=== PATIENT | male | born 1975 | race Caucasian/White ===

== ENCOUNTER 2017-01-28 10:20 | Emergency (ER) | payer OTHER ==
[2017-01-28 10:36] VITALS: BP 122/84
[2017-01-28] MEDS ORDERED: DIPH/PERTUSS(ACELL)/TETANUS VAC/PF 0.5 ML SYR (>=10YO) IM ONE (11:01)
[2017-01-28] MEDS ORDERED: LIDOCAINE 1% INJ-PF (10 MG/ML) 30 ML SDV INJ ONE (11:04)
--- NOTE | 2017-01-28 11:05 | ER Document Report ---
HPI - HPI Patient complains to provider of: finger lac Onset: Just prior to arrival Onset/Duration: Sudden Quality of pain: No pain, Achy Pain Level: 0 Context: Patient states that he was using a sledgehammer to break glass and his hand slipped cutting his right second finger on broken glass. Patient with laceration to dorsal aspect of right finger. Associated Symptoms: Other - finger lac Exacerbated by: Denies Relieved by: Denies Similar symptoms previously: No Recently seen / treated by doctor: No - ROS ROS below otherwise negative: Yes Systems Reviewed and Negative: Yes All other systems reviewed and negative - DERM Skin Color: Normal Skin Problems: Laceration Past Medical History - General Information source: Patient - Social History Smoking Status: Current Every Day Smoker Frequency of alcohol use: Occasional Drug Abuse: None Occupation: salvage Lives with: Family Family History: Reviewed & Not Pertinent Patient has suicidal ideation: No Patient has homicidal ideation: No - Medical History Medical History: Negative Renal/ Medical History: Denies: Hx Peritoneal Dialysis Surgical Hx: Negative Vertical Provider Document - CONSTITUTIONAL Agree With Documented VS: Yes Exam Limitations: No Limitations General Appearance: WD/WN, No Apparent Distress - INFECTION CONTROL TRAVEL OUTSIDE OF THE [place] IN LAST 30 DAYS: No - HEENT HEENT: Atraumatic, Normocephalic - NECK Neck: Normal Inspection - RESPIRATORY Respiratory: No Respiratory Distress O2 Sat by Pulse Oximetry: 97 - CARDIOVASCULAR Pulses: Normal: Radial - MUSCULOSKELETAL/EXTREMETIES Musculoskeletal/Extremeties: MAEW, FROM, No Edema Notes: No tendon deficit to right second finger - NEURO Level of Consciousness: Awake, Alert, Appropriate Motor/Sensory: No Motor Deficit, No Sensory Deficit - DERM Integumentary: Warm, Dry, Laceration - Irregular laceration to dorsal aspect of right second finger over middle phalanx Course - Vital Signs Vital signs: Temp Pulse Resp BP Pulse Ox 98.7 F 84 16 122/84 97 01/28/17 10:35 01/28/17 10:35 01/28/17 10:35 01/28/17 10:35 01/28/17 10:35 - Diagnostic Test Radiology reviewed: Image reviewed, Reports reviewed Procedures - Laceration/Wound Repair Right 2nd digit Wound length (cm): 3.5 Wound's Depth, Shape: Irregular Laceration pre-procedure: Other - chlorhexadine Anesthetic type: 1% Lidocaine - digital block Wound Repaired With: Sutures Suture Size/Type: 5:0, Nylon Number of Sutures: 8 Layer Closure?: No Post-procedure wound care: Sterile dressing applied Post-procedure NV exam normal: Yes Complications: No Hands back picture: 1 - lac 2 - lac 3 - lac Discharge - Discharge Clinical Impression: Finger laceration Qualifiers: Encounter type: initial encounter Finger: index finger Damage to nail status: without damage Foreign body presence: without foreign body Laterality: right Qualified Code(s): S61.210A - Laceration without foreign body of right index finger without damage to nail, initial encounter Condition: Stable Disposition: HOME, SELF-CARE Instructions: Prophylactic Antibiotic ([facility]), Tetanus Immunization Given ([facility]), Laceration Care ([facility]), Antibiotic Ointment Protection ([facility]) Additional Instructions: Return immediately for any new or worsening symptoms Followup with your primary care provider, call tomorrow to make a followup appointment Suture removal in 8 days Prescriptions: Cephalexin Monohydrate [Keflex 500 mg Capsule] 500 mg PO Q6H 5 Days Naproxen [Naprosyn 250 Nmg Tablet] 1 tab PO BID #14 tablet Forms: Return to Work Referrals: CANDACE DAMIAN DO [ACTIVE STAFF] - Follow up as needed
--- NOTE | 2017-01-28 11:42 | RADIOLOGY REPORT (SQ) ---
EXAM DESCRIPTION: FINGER RIGHT COMPLETED DATE/TIME: 01/28/2017 11:27 am REASON FOR STUDY: finger cut on glass, lac, ?FB COMPARISON: None. NUMBER OF VIEWS: Three views. TECHNIQUE: AP, lateral, and oblique images acquired of the right second finger. LIMITATIONS: None. FINDINGS: MINERALIZATION: Normal. BONES: No acute fracture or dislocation. No worrisome bone lesions. SOFT TISSUES: No soft tissue swelling. No radiopaque foreign body foreign body. Soft tissue lacerat ion along the dorsal aspect 2nd finger, along the middle phalanx region. OTHER: No other significant finding. IMPRESSION: No fracture. No retained radiopaque foreign body COMMENT: SITE OF TRAUMA/COMPLAINT MARKED/STAMP COMPLETED: YES. TECHNICAL DOCUMENTATION: JOB ID: [id number] [employer]- All Rights Reserved
== END 2017-01-28 12:36 | disposition home or self-care (01) ==
LOC: ER 10:20
PROC: 0HQFXZZ Repair Right Hand Skin, External Approach (ICD-10-PCS; principal; 2017-01-28)
DX: S61.210A Laceration without foreign body of right index finger without damage to nail, initial encounter (principal); W25.XXXA Contact with sharp glass, initial encounter; Y93.89 Activity, other specified; Y99.0 Civilian activity done for income or pay; F17.200 Nicotine dependence, unspecified, uncomplicated
CPT/HCPCS: 12002; 99283; 90471; 73140; 90715; J3490